=== PATIENT | male | born 1945 | race Caucasian/White ===

== ENCOUNTER → 2022-08-03 14:35 | Outpatient (CLI) | payer MEDICARE, OTHER, SELFPAY ==
--- NOTE | 2022-08-03 14:37 | DI.ECHO.S_ITS ---
[facility] +---------+ : : [address] : : : : [id number] : : : : Phone: [phone]+ Echocardiogram Report + + :Name: MANDEEP BARBER Study Date: 08/03/2022 Height: 69 in : :[facility] ReadingLocation: Weight: 220 lb : : Gender: Male BSA: 2.2 m2 : :: 1945 Age: 76 yrs BP: 145/75 mmHg: :Reason For Study: Atrial fibrillation : :Ordering Physician: BOB, : :TYRESE Performed By: Napoleon Marques : :Referring: TYRESE MEEKS : + + Interpretation Summary The left ventricle is normal in size. Left ventricular wall thickness is mildly increased. Left ventricular systolic function is normal. The ejection fraction is estimated to be 60-65%. There are no focal wall motion abnormalities. Diastolic function could not be accurately assessed due to atrial fibrillation. The right ventricle is normal in size and function. Pulmonary artery pressures cannot be estimated because of the lack of a measurable TR jet velocity. Both atria are normal in size. There is mild to moderate aortic stenosis. The calculated aortic valve area is 1.4 cm2. The aortic valve mean gradient is 17 mmHg. There is no other significant valvular heart disease. The aortic root is normal size. Overall there have maura no significant changes since prior echo study on 11/23/2020. Procedure: A two-dimensional transthoracic echocardiogram with color flow and Doppler was performed. The study quality was technically adequate. Comparison is made with the echocardiogram of 11/23/2020. Left Ventricle: The left ventricle is normal in size. Left ventricular wall thickness is mildly increased. Left ventricular systolic function is normal. The ejection fraction is estimated to be 60-65%. There are no focal wall motion abnormalities. Diastolic function could not be accurately assessed due to atrial fibrillation. Right Ventricle: The right ventricle is normal in size and function. Atria: Both atria are normal in size. The interatrial septum grossly appears intact with no obvious evidence for an atrial septal defect. Mitral Valve: The mitral valve is normal in structure and function. There is trace mitral regurgitation. Aortic Valve: The aortic valve is moderately calcified. There is mild to moderate aortic stenosis. The aortic valve mean gradient is 17 mmHg. The calculated aortic valve area is 1.4 cm2. There is trace aortic regurgitation. Tricuspid Valve: The tricuspid valve is normal in structure and function. There is a trace or physiologic amount of tricuspid regurgitation. Pulmonary artery pressures cannot be estimated because of the lack of a measurable TR jet velocity. Pulmonic Valve: The pulmonic valve is not well seen, but is grossly normal. There is a trace or physiologic amount of pulmonic regurgitation. There is no other significant valvular heart disease. Great Vessels: The aortic root is normal size. The ascending aorta could not be visualized. The IVC is of normal diameter and collapses greater than 50% with a sniff. This suggests a low right atrial pressure of 3 mm Hg. Pericardium/ Pleura There is no pericardial effusion. There is no pleural effusion. MMode/2D Measurements & Calculations LVIDd: 4.5 cm LVOT diam: 2.0 cm LVIDs: 2.5 cm Ao root diam: 3.2 cm FS: 44.4 % IVSd: 1.3 cm LVPWd: 1.2 cm LV mcelroy. diameter/BSA (cm/m^2): 2.1 LV sys. diameter/BSA (cm/m^2): 1.2 LA dimension: 3.7 cm RA long axis: 5.8 cm LA A2 area: 14.6 cm2 LA A4 area: 22.4 cm2 LA length (vol): 5.6 cm LA vol: 49.3 ml LA vol index: 22.9 ml/m2 TAPSE_phl: 2.0 cm Doppler Measurements & Calculations Ao V2 max: 271.0 cm/sec LVOT Max Christiano: 106.0 cm/sec Ao V2 mean: 195.0 cm/sec LV V1 max P.5 mmHg Ao max P.0 mmHg LV V1 VTI: 24.0 cm Ao mean P.0 mmHg JAYMIE(I,D): 1.4 cm2 Ao V2 VTI: 55.2 cm JAYMIE(V,D): 1.2 cm2 sev ratio: 0.43 JAYMIE indexed to BSA (cm^2/m^2): 0.64 SV(LVOT): 75.8 ml AV VR_phl: 0.39 JAYMIE(VTI)/BSA_phl: 0.64 Reading Physician:08:35 AM
== END ==
PROVIDERS: PCP Physician Assistant Medical; Referring Provider Internal Medicine Cardiovascular Disease; Visit Provider Internal Medicine Cardiovascular Disease
DX: I48.0 Paroxysmal atrial fibrillation (principal); I25.10 Atherosclerotic heart disease of native coronary artery without angina pectoris; I35.0 Nonrheumatic aortic (valve) stenosis
CPT/HCPCS: 93306

== ENCOUNTER → 2022-08-08 09:54 | Outpatient (CLI) | payer MEDICARE, OTHER, SELFPAY ==
[2022-08-08 10:39] LABS: COVID19 -Nasal RAPID Negative (Negative)
== END ==
PROVIDERS: PCP Physician Assistant Medical; Visit Provider Surgery
DX: Z20.822 Contact with and (suspected) exposure to COVID-19 (principal); Z01.812 Encounter for preprocedural laboratory examination
CPT/HCPCS: 87635; C9803

== ENCOUNTER 2022-08-09 08:28 | Day surgery (SDC) | payer MEDICARE, OTHER, SELFPAY ==
[2022-08-09] VITALS (7 sets, daily range): BP systolic 80–135; BP diastolic 42–80; PULSE 67–85; RESP 12–18; TEMP 36.4–36.7; O2SAT 93–96; BMI 32.5
--- NOTE | 2022-08-09 | PATH_ITS ---
[facility] Accession Number: [id number] . 01 Material submitted: . PART A: gastrointestinal site - PROXIMAL ANTRUM BIOPSY PART B: gastrointestinal site - GASTRIC POLYP PART C: hernia - HERNIA NECK BIOPSY . 01 Diagnosis: A. Proximal Antrum, Biopsy: Gastric mucosa with associated erosion and crystalline material deposition within glandular lumen and superficial lamina propria. See comment. No Helicobacter pylori organisms on immunohistochemical stain. No intestinal metaplasia, dysplasia, or malignancy. . B. Gastric Polyp, Biopsy: Hyperplastic polyp. No Helicobacter pylori organisms on immunohistochemical stain. No intestinal metaplasia, dysplasia, or malignancy. . C. Hernia Neck, Biopsy: Gastric mucosa with mild chronic inflammation and focal active inflammation. No Helicobacter pylori organisms on immunohistochemical stain. No intestinal metaplasia, dysplasia, or malignancy. [facility] 08/15/2022 1444 Local . 01 Comment: Part A: The crystalline material stains positive with an iron stain, control stains appropriately. 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 The presence of iron-related mucosal injury does not preclude the possibility of other medication conditions that may have initiated or exacerbated tissue injury, and clinical correlation is advised. . 01 Electronically signed: . Blessing Crane MD, Pathologist NPI- [id number] . 01 Gross description: . Part A: PROXIMAL ANTRUM BIOPSY: Received in formalin are multiple fragment(s) of maldonado, soft tissue measuring 0.7 x 0.2 x 0.1 cm in aggregate submitted entirely in 1 cassette(s) Part B: GASTRIC POLYP: Received in formalin is 1 fragment(s) of maldonado, soft tissue measuring 0.5 x 0.3 x 0.2 cm submitted entirely in 1 cassette(s) Part C: HERNIA NECK BIOPSY: Received in formalin is 1 fragment(s) of maldonado, soft tissue measuring 0.3 x 0.1 x 0.1 cm submitted entirely in 1 cassette(s) /CPE 08/12/2022 0944 Local . 01 Microscopic: . A. An immunohistochemical stain was performed to evaluate for Helicobacter organisms and is negative. The control stain showed appropriate reactivity. . B. An immunohistochemical stain was performed to evaluate for Helicobacter organisms and is negative. The control stain showed appropriate reactivity. . C. An immunohistochemical stain was performed to evaluate for Helicobacter organisms and is negative. The control stain showed appropriate reactivity. . . * This test was developed and its performance characteristics determined by [facility]. It has not been cleared or approved by the U.S. Food and Drug Administration. The FDA has determined that such clearance or approval is not necessary. This test is used for clinical purposes. It should not be regarded as investigational or for research. . 01 Pathologist provided ICD-10: K29.70, D13.1, K29.60 . 01 CPT . 429161, 332776, 424669, D46175, 822714 Performed at: 01 [facility] [address] [place] [address], [place], [place] [id number] MD Anatoly Miller MD Phone: [phone]
--- NOTE | 2022-08-09 09:08 | PM.HP.1 ---
History of Present Illness History of Present Illness Date Patient Seen: 08/09/22 Time Patient Seen: 09:08 Chief complaint: EGD Narrative: I reviewed the note from Brittany Yip from June 26. No significant changes apart from mild overall improvement. He increased his anti-reflux therapy. Patient History Medical History Allergic rhinitis Complex sleep apnea syndrome Essential tremor Hiatal hernia with GERD Hyperlipidemia Hypertension Hypoparathyroidism Insomnia, persistent Obstructive sleep apnea of adult Psoriasis Seizures Snoring Surgical History Carpal tunnel syndrome, bilateral Stented coronary artery Family & Social History Social History: household members spouse lives independently Yes caregiver/support person No Tobacco & Substance use: Smoking Status Never smoker Meds Home Medications and Allergies Home Medications Medication Instructions Recorded Confirmed Type aspirin 81 mg tablet,delayed 81 mg PO DAILY 03/18/19 08/09/22 History release (Adult Low Dose Aspirin) isosorbide mononitrate 60 mg 60 mg PO DAILY 03/18/19 08/09/22 History tablet,extended release 24 hr losartan 50 mg tablet 50 mg PO DAILY 03/18/19 08/09/22 History Resmed Airsense 10 BIPAP #1 ea 03/19/19 09/07/21 History amlodipine 5 mg tablet 5 mg PO DAILY 08/22/19 08/09/22 History pantoprazole 40 mg tablet,delayed 40 mg PO DAILY 08/22/19 08/09/22 History release rivaroxaban 20 mg tablet (Xarelto) 20 mg PO DAILY 08/22/19 08/09/22 History rosuvastatin 5 mg tablet 5 mg PO DAILY 08/22/19 08/09/22 History atenolol 25 mg tablet 12.5 mg PO DAILY 09/07/21 08/09/22 History fluticasone propionate 110 2 puff inhalation BID 09/07/21 08/09/22 History mcg/actuation HFA aerosol inhaler (Flovent HFA) Allergies Allergy/AdvReac Type Severity Reaction Status Date / Time No Known Drug Allergies Allergy Verified 08/09/22 08:59 Review of Systems Review of Systems ROS: Yes All systems reviewed with the patient and are negative except as otherwise documented Exam Const General: cooperative HENMT Head: normal to inspection Eyes General: appearance normal, both eyes and all related structures Neck Neck: normal visual inspection Chest Chest: normal inspection of the chest Resp Effort & Inspection: normal respiratory effort Cardio Rate: regular rate GI Inspection: normal to inspection Skin General: no rashes or lesions noted Neuro General: patient alert and patient awake Extrem General: normal to inspection and no pedal edema Psych Appearance: grossly normal Assessment & Plan Assessment & Plan narrative: 76-year-old male with remote history of achalasia treated with Heller myotomy and fundoplication. He is remained on PPI for his GERD. He is had some symptoms of increased phlegm and hemoptysis. EGD is requested and will be pursued today. He is off his Xarelto for 2 full days. Time Spent With Patient Critical Care time: I spent a total of [] minutes of critical care time on this patient's care today; this time is exclusive of procedural time.
--- NOTE | 2022-08-09 09:10 | PM.PREOP ---
Pre-operative Note COVID-19 COVID-19 status: Negative Result date/Date tested (Pos, Neg/Pending): 08/08/22 Criteria for continued procedure: Possibility delay results in more complex future surgery or treatment Interval Note History & Physical reviewed/Exam performed by Physician: Yes Changes to H&P: No ASA Class (for procedural sedation): III
[2022-08-09] MEDS: SODIUM CHLORIDE 0.9% 1,000 ML 84 ML IV (09:32)
--- NOTE | 2022-08-09 10:20 | P.OP.EGD_ITS ---
Operative Date/Time/Diagnoses Date of procedure: 08/09/22 Time of procedure: 10:20 Pre-op diagnosis: Increased phlegm and hemoptysis. History of achalasia status post Heller myotomy and fundoplication. Post-op diagnosis: same Procedure & Clinicians Study performed: EGD with biopsy and hot snare polypectomy Same procedure as scheduled: No Indications: Increased phlegm and hemoptysis. History of achalasia status post Heller myotomy and fundoplication. Surgeon: Yohan Carbone Procedure Notes SCOAP/Timeout: Done Procedure in detail: After the risks and benefits were explained, written and verbal informed consent was obtained. The patient was brought into the procedure room and placed into the left lateral decubitus position. Please see nurse supervisor contact and service clerks notes for sedation details. The scope was introduced into the mouth through the bite block and advanced under direct visualization to the 2nd portion of the duodenum. The scope was slowly withdrawn carefully examining the mucosa for any defects or lesions. Retroflexed views were accomplished in the stomach. The stomach was decompressed, the scope was then removed from the patient who tolerated the procedure well. Sedation minutes: 15 Complications: none Impression: 1. Duodenum: This was normal from the bulb through the 2nd portion. 2. Stomach: No evidence of any outlet obstruction. There was a patch of quite friable erythematous granular mucosa in the proximal antrum measuring perhaps 5 cm in greatest dimension. This area was targeted for biopsy. Retroflexed views of the LES disclosed evidence of persistent hiatal hernia. There was some erythema at the neck of the hernia suggestive of Kurtis's erosions. At the neck of the hernia 1 of these areas was biopsied. At the neck of the hiatal hernia which was at about 40 cm from the incisors there was a small 5 mm polyp also removed with hot snare. Polyp itself appeared somewhat inflamed. 3. Esophagus: The squamocolumnar junction correlated with the top of the gastric folds. GE junction was at about 36 cm from the incisors. The residual lower esophageal sphincter mechanism subjectively seemed a little on the tense side but did not impede passage of the scope into stomach. The remainder of the esophagus was unremarkable. Endoscopic diagnosis 1. Hiatal hernia 2. Inflamed proximal gastric polyp 3. Inflamed patch of gastric antrum Post-procedure Plan for aftercare: 1. Await histopathology. 2. Continue anti-reflux therapy. 3. Surveillance EGD will be considered following review of pathology. 4. Okay to restart Xarelto tomorrow. 5. Continue plans for pulmonary evaluation. Disposition: PACU
--- NOTE | 2022-08-09 11:08 | SUR.PHASEII ---
Patient ambulated to wheelchair with steady gait. Tolerated fluids. Provided discharge instruction verbal/written. Patient stated understanding. Discharged patient by wheelchair to private vehicle in stable condition.
== END 2022-08-09 11:08 | disposition home or self-care (01) ==
PROVIDERS: PCP Physician Assistant Medical; Referring Provider Internal Medicine Gastroenterology; Visit Provider Internal Medicine Gastroenterology
PROC: 0DJ08ZZ Inspection of Upper Intestinal Tract, Via Natural or Artificial Opening Endoscopic (ICD-10-PCS; CPT 43235; principal; 2022-08-09 10:00)
DX: R04.2 Hemoptysis (principal); Z98.890 Other specified postprocedural states; K31.7 Polyp of stomach and duodenum; K44.9 Diaphragmatic hernia without obstruction or gangrene; K29.50 Unspecified chronic gastritis without bleeding
CPT/HCPCS: 43251; 43239; J2704